=== PATIENT | male | born 2000 | race Caucasian/White ===

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

== ENCOUNTER 2019-08-13 22:36 | Emergency (ER) | payer SELFPAY ==
[2019-08-13 22:38] VITALS: BP 144/92; PULSE 124; RESP 24; TEMP 36.1; O2SAT 96
--- NOTE | 2019-08-13 22:46 | ED.GENADUL_ITS ---
Discharge Plan Disposition Patient Disposition: HOME Condition: Good Discharge Details Chief Complaint: RespSymp Clinical Impression: Asthma exacerbation Primary Care Provider: Isabella,Local ED Provider: Nelson Palacios Home Meds and New Rx's Prescriptions: New ipratropium-albuterol 0.5 mg-3 mg(2.5 mg base)/3 mL solution for nebulization 3 ml IH Q6H Qty: 90 RF: 0 prednisone 50 MG tablet 50 mg PO DAILY Qty: 5 RF: 0 doxycycline hyclate 100 mg tablet 100 mg PO BID Qty: 20 RF: 0 No Action fluticasone propion-salmeterol [Advair Diskus] 250-50 mcg/dose Blister With Device 1 inh Inhalation BID RF: 0 Combivent Respimat 20-100 mcg/actuation Mist 1 puff INHALATION Q6H PRN PRN (Reason: Shortness Of Breath) RF: 0 clonazepam 0.5 mg tablet,disintegrating 0.5 mg Translingual .once prn PRN (Reason: prn seizure aura or actual seizure lasting > 1 min) Qty: 5 RF: 0 lamotrigine [Lamictal] 25 mg Tablet 75 mg PO BID RF: 0 Discharge Instructions Instructions: Asthma (ED) Additional Instructions: At this time you have an asthma exacerbation. Your chest x-ray shows a very questionable small infiltrate which may be early pneumonia or may be nothing in particular. With no symptoms of fever chills or productive cough would recommend holding off on antibiotics unless you develop these symptoms. Please continue to use your nebulizer every 4 hours for the next 2 to 3 days. Please take the steroid prednisone as directed. If you notice any worsening of your symptoms, or any new symptoms such as vomiting, diarrhea, fever, chills, shortness of breath, chest pain, numbness, weakness, or fainting , please return immediately to the emergency department for reevaluation. Please follow up with your primary care provider as soon as possible for reassessment and reevaluation. As always, it was a pleasure participating in your medical care today. Medical Decision Making 19-year-old male with past medical history of seizures and asthma who presents today for an asthma exacerbation. Patient states that over the last 4 to 6 hours he is noted prompt increase shortness of breath, consistent with prior asthma exacerbations. He does smoke marijuana, but denies any tobacco or vaping. He has been using his inhalers and nebulizer at home which have improved his symptoms but not resolve them. He denies any fever or chills. He denies any significant chest pain or cough. Exam demonstrates diffuse wheezes throughout, mildly reduced breath sounds, but otherwise stable appearance. No hypoxemia at this time. But work of breathing is increased. Will give magnesium, nebs, and steroids, and reassess. 12:12 AM Patient is notably improved after breathing treatments, magnesium and steroids. He is feeling better and is requesting to go home. Oxygen saturation remains notably stable, he feels well. Repeat auscultation demonstrates normal lung sounds aside from minimal wheezes in the bases. Chest x-ray does show questionable patchy linear opacity in right upper lung keyes. With no fever, chills or productive cough I feel pneumonia is unlikely. However we will give the patient a prescription for doxycycline, recommends that if he does develop the symptoms that he can begin taking this. Give steroids for home use. We will send him home with a prescription for DuoNeb's to use with his home nebulizer. He does have a prescription coming in but he can use this if it does not come in in a timely manner. Additionally we will also send him home with 4 DuoNeb treatments as he has not at home currently. This is why there is a notably higher order level than was actually administered here. I have extensively reviewed the treatment plan and discharge instructions with the patient. I have addressed all patient concerns at this time. The patient was made aware of what symptoms to monitor for that would warrant a return to the emergency department. Discussed the plan with the patient, they demonstrate verbal understanding and agreement with our assessment and plan at this time. FINDINGS: Lungs: Patchy opacity in the right upper lobe may reflect a focus of linear atelectasis. Associated subtle right upper lobe infiltrate/pneumonia not excluded. Pleural space: Unremarkable. No pleural effusion. No pneumothorax. Heart/Mediastinum: Unremarkable. No cardiomegaly. Bones/joints: Unremarkable. IMPRESSION: Patchy linear opacity in the right upper lobe may reflect a focus of linear atelectasis. Associated subtle right upper lobe infiltrate/pneumonia not excluded. Thank you for allowing us to participate in the care of your patient. Dictated and Authenticated by: Juan A rAteaga MD 08/13/2019 11:16 PM Eastern Time ([place] & [place]) HPI General Date/Time Provider Initiated Documentation: 08/13/19 22:38 . HPI Narrative: 19-year-old male with a past medical history of asthma and seizures who presents today for evaluation of shortness of breath. The patient states that earlier this afternoon/early evening he became notably short of breath and had difficulty breathing. He was taking both his nebulizer solutions and his inhalers but this only slightly improved his symptoms but did not resolve it. He does admit to marijuana use, but denies any vaping or tobacco use. He denies any exposure to smoke, any cough fever or chills otherwise. He denies any significant chest pain. He denies any other complaints at this time. He denies being intubated before for his asthma. He denies any recent NSAID use. He denies any recent trauma. Related Data Home Medications Medication Instructions Recorded Confirmed Combivent Respimat 1 puff INHALATION Q6H PRN PRN 10/18/18 08/13/19 clonazepam 0.5 mg TRANSLINGUAL .once prn PRN 10/18/18 08/13/19 #5 tab fluticasone propion-salmeterol 1 inh INHALATION BID 10/18/18 08/13/19 [Advair Diskus] lamotrigine [Lamictal] 75 mg PO BID 08/13/19 08/13/19 doxycycline hyclate 100 mg PO BID #20 tab 08/14/19 ipratropium-albuterol 3 ml IH Q6H #90 ml 08/14/19 prednisone 50 mg PO DAILY #5 tab 08/14/19 Previous Rx's Medication Instructions Recorded clonazepam 0.5 mg TRANSLINGUAL .once prn PRN 10/18/18 #5 tab doxycycline hyclate 100 mg PO BID #20 tab 08/14/19 ipratropium-albuterol 3 ml IH Q6H #90 ml 08/14/19 prednisone 50 mg PO DAILY #5 tab 08/14/19 Allergies Allergy/AdvReac Type Severity Reaction Status Date / Time No Known Allergies Allergy Unverified 08/13/19 22:57 General Stated Complaint: RespSymp [place]: 3 Review of Systems All systems reviewed & are unremarkable except as noted in HPI and below PFSH Social History Smoking/Tobacco Use Status: Current every day Tobacco Type: cigarettes Alcohol Intake: never Drug use: Socially Substance use type: marijuana Do you feel safe at home: Yes Do you feel safe in your relationship?: Yes Exam Narrative Exam Narrative: 1.Const: Well-nourished, Well-developed, appearing stated age 2.Eyes: PERRL, no conjunctival injection, and symmetrical lids. 3.ENT: Atraumatic external nose and ears. Moist MM. Neck: Symmetric, trachea midline, No thyromegaly. 4.CVS: +S1/S2, No murmurs or gallops. Peripheral pulses 2+ and equal in all extremities. Brisk capillary refill in all extremities. 5.RESP: Unlabored respiratory effort, no signs of acute airway compromise though. Diffuse wheezes throughout mildly reduced breath sounds throughout. No rales or rhonchi. 6.GI: Soft, Nontender/Nondistended, No hepatosplenomegaly. No guarding or rebound. 7.MSK: Normocephalic/Atraumatic, Extremities w/o deformity or ttp No cyanosis or clubbing, Normal movement of all extremities 8.Skin: Warm, Dry. No rashes or lesions. 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 Sensation grossly intact, no focal neurologic deficits. 10.Psych: (AAO) x3. Appropriate mood and affect Course Vital Signs Vital signs: Vital Signs Temperature 36.1 C L 08/13/19 22:38 Pulse 124 H 08/13/19 22:38 Respiratory Rate 24 08/13/19 22:38 Blood Pressure 144/92 H 08/13/19 22:38 Pulse Oximetry 96 08/13/19 22:38 Temperature 36.1 C L 08/13/19 22:38 Temperature Source Skin 08/13/19 22:38 Pulse 124 H 08/13/19 22:38 Respiratory Rate 24 08/13/19 22:38 Respiratory Effort Non-Labored 08/13/19 22:41 Respiratory Depth Normal 08/13/19 22:41 Blood Pressure 144/92 H 08/13/19 22:38 Blood Pressure Position Sitting 08/13/19 22:38 Pulse Oximetry 96 08/13/19 22:38 Oxygen Delivery Method Room Air 08/13/19 22:38 Oxygen Flow Rate 0 08/13/19 22:38 Pain Level 0 08/13/19 22:38
[2019-08-13] MEDS: methylPREDNISolone SUCC 125 MG VIAL IVP (22:48)
[2019-08-13 22:49] VITALS: PULSE 114; RESP 24; RESP 4; RESP 8; O2SAT 96
[2019-08-13] MEDS: Albuterol/Ipratropium 3 ML UPD VIAL 9 ML UPD (22:49)
[2019-08-13] MEDS: MAGNESIUM SULFATE 2 GM/50 ML BAG IVPB (22:50)
[2019-08-13] MEDS: Normal Saline 500 ML IV (23:00)
[2019-08-13 23:08] VITALS: PULSE 124; RESP 21; RESP 4; O2SAT 96
--- NOTE | 2019-08-13 23:11 | DI.RAD_ITS ---
EXAM: XR PORTABLE CHEST AP CLINICAL HISTORY: asthma, SOB, eval for infiltrate COMPARISON: XR CHEST 2V PA LATERAL from 11/24/2018 FINDINGS: Examination is compared with previous examination of 11/24/2018. There is new predominantly linear a blanca of increased radiodensity in the right upper lung field. Question minimally increased left supra hilar markings noted as well. No pleural effusion. Cardiac size within normal limits. IMPRESSION: Findings suggesting acute atelectasis and/or consolidation, right upper lung field. Appropriate foll ow-up studies requested.
--- NOTE | 2019-08-13 23:16 | DI.VRAD_ITS ---
PROCEDURE INFORMATION: Exam: XR Chest, 1 View Exam date and time: 08/13/2019 11:11 PM Age: 19 years old Clinical indication: Shortness of breath; Patient HX: Asthma, SOB, eval for infiltrate TECHNIQUE: Imaging protocol: XR of the chest Views: 1 view. COMPARISON: CR XR CHEST 2V PA LATERAL 11/24/2018 10:21 AM FINDINGS: Lungs: Patchy opacity in the right upper lobe may reflect a focus of linear atelectasis. Associated subtle right upper lobe infiltrate/pneumonia not excluded. Pleural space: Unremarkable. No pleural effusion. No pneumothorax. Heart/Mediastinum: Unremarkable. No cardiomegaly. Bones/joints: Unremarkable. IMPRESSION: Patchy linear opacity in the right upper lobe may reflect a focus of linear atelectasis. Associated subtle right upper lobe infiltrate/pneumonia not excluded. Dictated and Authenticated by: Juan A Arteaga MD. Ordering:MERCEDES Damon MD
[2019-08-13 23:26] VITALS: BP 103/47; PULSE 126; RESP 19; O2SAT 94
[2019-08-13 23:34] VITALS: PULSE 112; RESP 18; RESP 4; O2SAT 96
[2019-08-13] MEDS: Albuterol/Ipratropium 3 ML UPD VIAL (23:34)
[2019-08-14 00:08] VITALS: RESP 4
[2019-08-14] MEDS: Albuterol/Ipratropium 3 ML UPD VIAL 15 ML UPD (00:08)
[2019-08-14 00:11] VITALS: BP 122/80; PULSE 124; RESP 16; O2SAT 100
--- NOTE | 2019-08-14 14:33 | ED.FU.B_ITS ---
Received call from patient's mother, 08/14/2019. Patient is at pharmacy trying to fill prescription for prednisone and DuoNeb. Patient does not have insurance, cannot afford prednisone but cannot afford DuoNeb, requesting DuoNeb prescription be changed to albuterol nebulizer solution. I called [facility] pharmacy as requested, DuoNeb changed to albuterol every 4 hours as needed.
== END 2019-08-14 00:25 | disposition home or self-care (01) ==
LOC: ER 08-14 00:29
PROVIDERS: Emergency Provider Student in an Organized Health Care Education/Training Program
DX: J45.901 Unspecified asthma with (acute) exacerbation (principal); F12.10 Cannabis abuse, uncomplicated; R91.8 Other nonspecific abnormal finding of lung field
CPT/HCPCS: 94640; 96361; 96374; 96375; 99285; 71045; J2930; J7620

== ENCOUNTER 2021-04-09 22:26 | Emergency (ER) | payer SELFPAY ==
[2021-04-09 22:44] VITALS: BP 136/74; PULSE 106; RESP 20; TEMP 37.8; O2SAT 97
--- NOTE | 2021-04-09 22:45 | RT.EKG_ITS ---
APPROVED REPORT Exam: Resting ECG Reason for Exam: seizures with ICD fire Patient Location: E HR:100 bpm ECG Measurements Heart Rate 100 AXIS AL 156 P 16 QRSd 72 QRS -5 QT 327 T 18 QTc 422 Conclusion Sinus tachycardia...rate> 99. Sinus. No STEMI. I have reviewed and interpreted ECG and agree with software generated interpretation.
--- NOTE | 2021-04-09 22:47 | ED.GENADUL_ITS ---
Discharge Plan Disposition Patient Disposition: HOME Condition: Improving Discharge Details Clinical Impression: Seizure disorder, Breakthrough seizure Primary Care Provider: [facility] Provider: Dany Perez Home Meds and New Rx's Prescriptions: Continued montelukast [Singulair] 10 mg Tablet 10 mg PO DAILY RF: 0 Nayzilam 5 mg/spray (0.1 mL) [place],Non-Aerosol 5 mg INTRANASAL ONCE PRNRF: 0 clonazepam 0.5 mg tablet,disintegrating 1 mg Translingual BID RF: 0 fluticasone propion-salmeterol [Advair Diskus] 250-50 mcg/dose Blister With Device 1 inh Inhalation BID RF: 0 Combivent Respimat 20-100 mcg/actuation Mist 1 puff INHALATION Q6H PRN PRN (Reason: Shortness Of Breath) RF: 0 lamotrigine [Lamictal] 25 mg Tablet 75 mg PO BID RF: 0 ipratropium-albuterol 0.5 mg-3 mg(2.5 mg base)/3 mL solution for nebulization 3 ml IH Q6H Qty: 90 RF: 0 prednisone 50 MG tablet 50 mg PO DAILY Qty: 5 RF: 0 doxycycline hyclate 100 mg tablet 100 mg PO BID Qty: 20 RF: 0 Discharge Instructions Instructions: Recurrent Seizures in Adults (ED) Additional Instructions: Continue routine medications. We will ask our care management team to arrange a follow-up for you with our local neurologist. Home to rest this evening. Return for any acute concerns. Discharge Data Discharge Date/Time-TO BE ENTERED AT DEPARTURE: 04/10/21 01:31 Medical Decision Making <JOSE CARLOS Vance - Last Filed: 04/10/21 02:14> Patient is a pleasant 20-year-old male with known history of epilepsy, presenting today via EMS for breakthrough seizures. Patient reports that he had 2-day lapse in receiving his twice daily clonazepam. States that he subsequently suffered 3 breakthrough seizures today. Last seizure was witnessed by mom to administer intranasal midazolam. At the time EMS initially arrived, patient was postictal. A nasal trumpet was inserted. At the time he arrived in the ER, patient is alert and awake. He states that he typically does not a postictal period. He reports that he has a mild headache which is actually less than his typical. She denies pain elsewhere. Patient does have implanted ICD secondary to arrhythmias associated with his epilepsy. Per mom, this fired 3 times today. He denies any chest pain. He denies feeling short of breath. Patient reports that the break in the medication was secondary to delivery method. Patient is currently residing [facility] but neurology team is in [place] where mom currently lives. Typically mom male the medications to him but sadly there was a delay. Rather, she drove this up tonight. On exam, patient appears nontoxic. I have seen him in the postictal state historically and he does appear quite similar. He appears nontoxic. He has a normal neurological exam. Trauma is notable for the tongue but otherwise no objective evidence of trauma. Vital signs are stable. Nasal trumpet was removed by patient. He is no longer requiring oxygen. Lungs are clear, abdomen benign. The patient had 3 breakthrough seizures today, plan to obtain baseline labs. Has had multiple imaging of his head historically, as he has returned to baseline reports that this feels like his typical seizure, particularly as we cannot identify why he likely had a breakthrough, I do not feel that repeat CT is warranted at this time. However, as he did suffer 3 seizures I do feel that evaluation for potential electrolyte abnormality, rhabdomyolysis, elevation of troponin would be appropriate. Discussed this plan with the patient and his mom who are in agreement. Spoke with mom in person and on the phone. She may be reached at [phone]. Frequent updates provided. Labs reviewed. No leukocytosis. Stable H&H. CMP significant for elevation of the creatinine to 1.5. He has been elevated as high as 1.4 historically. He did appear dry on exam. Is likely associated with his seizure activity. CK within normal limits. Troponin within normal limits. Thyroid within normal espinal its. No alcohol on board. Patient reports that he has marijuana recently but this is not unusual for him.. UA pending. At the end of my shift, care transition to Dr. Perez with UA disposition delio horn. Patient is pending 2 L of fluids. Discussed this plan with the patient. He continues to be neurologically intact, feeling well. Sleeping intermittently. Drinking water and talking on the phone with mom. Break through in his medications was d/t his neurologist prescribing controlled substances in [place]. I believe he would be safer if he had a neurologist closer, will refer locally. Patient does not have a drivers license secondary to his seizure disorder. I have asked care management to reach out, if he has RCT to help with transportation to pharmacy, he could milk pickup driver his medicaitons himself and hopefully not have lapses in his antiepileptic medications. <Dany Perez MD - Last Filed: 04/10/21 01:04> Patient improved. He is ambulatory, in no distress. He has been placed back on his medications. Urinalysis without evidence of infection. No glucose or ketones. Stable and appropriate for discharge to home. Consistent with breakthrough seizure and known seizure disorder. Ms Nagel has arranged for local neurology follow-up. HPI <JOSE CARLOS Vance - Last Filed: 04/10/21 02:14> General Mode of arrival: EMS . Date/Time Provider Initiated Documentation: 04/09/21 22:32 . Limitations to Documentation: no limitations . Information obtained by: patient, family (mom), EMS, RN notes reviewed and old records reviewed . History of Present Illness 20 year old M presents to the emergency department with the chief complaint of multiple seizures, described as moderate and similar to prior episodes, Quality is described as aching, and is localized to the head (reports mild REED, the same as he typically has in post ictal period). Patient reports no radiation. Patient started experie ncing this hour(s) (has had 3 breakthrough seizures today) and it has been intermittent. No relieving factors improve symptom(s), Other factors that worsen symptoms (missed 2 days worth of medications) . Patient notes no other symptoms.; denies chest pain, cough, fever/chills, loss of appetite, nausea/vomiting, rash and shortness of breath. Patient did receive the following treatments prior to arrival, other (midazolam ) Related Data Home Medications Medication Instructions Recorded Confirmed Combivent Respimat 1 puff INHALATION Q6H PRN PRN 10/18/18 04/09/21 fluticasone propion-salmeterol 1 inh INHALATION BID 10/18/18 04/09/21 [Advair Diskus] lamotrigine [Lamictal] 75 mg PO BID 08/13/19 04/09/21 doxycycline hyclate 100 mg PO BID #20 tab 08/14/19 ipratropium-albuterol 3 ml IH Q6H #90 ml 08/14/19 04/09/21 prednisone 50 mg PO DAILY #5 tab 08/14/19 Nayzilam 5 mg INTRANASAL ONCE PRN 04/09/21 04/09/21 clonazepam 1 mg TRANSLINGUAL BID 04/09/21 04/09/21 montelukast [Singulair] 10 mg PO DAILY 04/09/21 04/09/21 Previous Rx's Medication Instructions Recorded doxycycline hyclate 100 mg PO BID #20 tab 08/14/19 ipratropium-albuterol 3 ml IH Q6H #90 ml 08/14/19 prednisone 50 mg PO DAILY #5 tab 08/14/19 Allergies Allergy/AdvReac Type Severity Reaction Status Date / Time No Known Allergies Allergy Unverified 04/09/21 23:36 General [place]: 3 Review of Systems <JOSE CARLOS Vance - Last Filed: 04/10/21 02:14> Constitutional Constitutional: Reports as per HPI, Denies chills, Reports fatigue, Denies fever(s) and Reports headache(s) Eyes Eyes: Reports as per HPI and Denies change in vision ENT Ears, Nose, Mouth, and Throat: Denies vertigo, Reports headache(s) and Denies neck pain Cardiovascular Cardiovascular: Reports as per HPI, Denies chest pain, Denies lightheadedness, Denies radiating jaw, neck or arm pain, Denies dyspnea and Denies dyspnea on exertion Respiratory Respiratory: Reports as per HPI, Denies chest congestion, Denies cough, Denies dyspnea and Denies dyspnea on exertion Gastrointestinal Gastrointestinal: Reports as per HPI, Denies abdominal pain, Denies change in bowel habits, Denies nausea and Denies vomiting Musculoskeletal Musculoskeletal: Reports as per HPI, Denies back pain, Denies myalgias, Denies muscle cramps, Denies neck pain and Denies numbness Integumentary/Breasts Skin/Breast: Reports as per HPI and Denies rash Neurologic Neurologic: Reports as per HPI, Denies abnormal movements, Denies abnormal speech, Denies behavioral changes, Denies confusion, Denies vertigo, Reports headache(s), Denies localized weakness, Denies numbness, Reports convulsions and Denies sensory deficit Psychiatric Psychiatric: Denies behavioral changes and Denies confusion Endocrine Endocrine: Reports fatigue PFSH <JOSE CARLOS Vance - Last Filed: 04/10/21 02:14> Medical History (Updated 04/10/21 @ 01:03 by Dany Perez MD) Asthma Epilepsy Surgical History History of nasal surgery History of tonsillectomy Social History Smoking/Tobacco Use Status: Never Smoking risk assessment performed?: Yes Alcohol Intake: current Drug use: Socially Substance use type: marijuana Do you feel safe at home: Yes Do you feel safe in your relationship?: Yes Exam <JOSE CARLOS Vance - Last Filed: 04/10/21 02:14> Const General: cooperative, healthy appearing, comfortable, no acute distress, well developed and well groomed Nutritional Appearance: average body habitus and well nourished Orientation: alert, awake and oriented x3 HENMT Head: normal to inspection, no palpable skull fracture, normocephalic and atraumatic Ears: hearing grossly normal bilaterally, external ears normal and TM's normal bilaterally General nose exam: external nose normal Mouth: oral mucosae normal, abnormal tongue (Bite izquierdo on both sides, no bleeding currently), mucous membranes dry (Appears dry), lip abnormal (Dry) and no muffled voice Throat: posterior oropharynx normal Eyes General: appearance normal, both eyes and all related structures Alignment and Position: alignment normal Periorbital: periorbital findings normal Eyelids: eyelids normal Sclera: sclerae normal Cornea: corneas normal Pupils: PERRL EOM: EOM intact bilaterally Neck Neck: normal visual inspection, full ROM, no lymphadenopathy and no meningeal signs Resp Effort & Inspection: normal respiratory effort, able to speak in complete sentences and no respiratory distress Auscultation: clear to auscultation bilaterally, no rales, no rhonchi and no wheezes Cardio Rate: regular rate Rhythm: regular rhythm Heart Sounds: S1 normal and S2 normal GI Inspection: normal to inspection and non-distended Palpation: soft, no hepatosplenomegaly, not firm, no guarding, not rigid and nontender Percussion: normal to percussion Auscultation: normal bowel sounds Back/Spine/Pelvis Cervical Spine: normal cervical lordosis, cervical ROM normal, No cervical spinal tenderness and No step off deformity Skin General skin exam: no rashes or lesions noted Neuro General: patient alert, patient awake and patient oriented x3 Cranial Nerves: CN's II-XI intact bilaterally Cognition: normal cognition Speech: speech normal Gait: normal gait Motor: muscle tone normal throughout, strength 5/5 throughout, no pronator drift, no movement abnormalities noted and no fasciculations Sensory Exam: no sensory deficits noted Coordination: [id number] test normal and [id number] test normal Extrem General: normal to inspection, capillary refill normal, no pedal edema and no calf tenderness Psych Appearance: grossly normal and well kempt Mental Status: mental status grossly normal Speech and Movement: speech and movement normal Sign Out <JOSE CARLOS Vance - Last Filed: 04/10/21 02:14> Sign Out Data: Sign Out Comment: Care transitioned to Dr. Perez with UA, reassessment and disposition pending. Last updated by Genie Nagel PA at 04/10/21 00:01
[2021-04-09 23:00] LABS: Abs Immature Grans 0.05 10^3/uL (0.0-0.06); Absolute Basophil Count 0.04 10^3/uL (0.0-0.2); Absolute Eosinophil Count 0.59 10^3/uL (0.0-0.7); Absolute Lymphocyte Count 1.81 10^3/uL (1.2-3.4); Absolute Monocyte Count 0.74 10^3/uL (0.1-0.8); Basophils % 0.4; Eosinophils % 6.1; HCT 43.9 % (40.0-50.0); HGB 14.8 g/dL (13.5-17.5); Immature Grans % 0.5; Lymphocytes % 18.8; MCH 31.5 pg (27.0-33.0); MCHC 33.7 % (32.0-36.0); MCV 93.4 fL (80-95); MPV 9.3 fL (8.0-11.0); Monocytes % 7.7; Neutrophils % 66.5; Nucleated RBC 0 %; Platelet Count 301 10^3/uL (130-400); RDW 11.9 % (11.8-14.1); RDW-SD 41.1 fL; WBC 9.63 10^3/uL (4.4-10.8)
[2021-04-09] MEDS: lamoTRIgine 25 MG TAB PO (23:04)
[2021-04-09] MEDS: Acetaminophen 325 MG TAB 650 MG PO (23:06)
[2021-04-09] MEDS: Normal Saline 1,000 ML 1000 ML IV (23:11)
[2021-04-09 23:25] LABS: ALT 26 U/L (16-63); AST 14 U/L (15-37); Albumin 4.5 g/dL (3.4-5.0); Alkaline Phosphatase 95 U/L (46-116); Anion Gap 13.2 mmol/L (3-11); BUN 10 mg/dL (7-18); Bilirubin, Total 0.8 mg/dL (0.2-1.0); CO2 25.8 mmol/L (21.0-32.0); CREATININE 1.5 mg/dL (0.70-1.30); Calcium 9.2 mg/dL (8.5-10.1); Chloride 106 mmol/L (98-107); ETHANOL BLOOD < 3.0 mg/dL (<3); Estimated GFR 59.08 (mL/min/1.73m2); Glucose 55 mg/dL (74-106); Potassium 4.3 mmol/L (3.5-5.1); Sodium 145 mmol/L (136-145); Total Protein 7.3 g/dL (6.4-8.2)
[2021-04-09 23:29] LABS: Creatine Kinase 259 U/L (39-308); Magnesium 2.3 mg/dL (1.8-2.4)
[2021-04-09 23:30] LABS: Troponin I < 0.05 ng/mL (<0.06)
[2021-04-10 00:04] VITALS: BP 126/60; PULSE 86; RESP 15; TEMP 36; O2SAT 98
--- NOTE | 2021-04-10 00:09 | NUR.NOTE ---
Nursing Note: Patient resting in bed at this time in relaxed position. Eyes closed and respirations even and nonlabored. Monitors in place and IV infusing per order without difficulty.
[2021-04-10 00:54] LABS: Bilirubin Negative (Negative); Blood Trace-intact (Negative); Clarity Clear (Clear); Glucose Negative (Negative); Ketones Negative (Negative); Leukocyte Esterase Negative (Negative); Nitrite Negative (Negative); Specific Gravity 1.025 (1.005-1.025); Urobilinogen 0.2 EU/dL (Up TO 0.2)
[2021-04-10 00:57] LABS: Bacteria Rare HPF (Negative); Casts Negative LPF (Negative); Crystals Negative HPF (Negative); Epithelial Cells Rare HPF (Negative); Mucus Negative (Negative); WBC 0-2 HPF (0-5)
[2021-04-10 00:58] LABS: C & S Indicated? No
[2021-04-10 01:05] LABS: *AMPHETAMINES SCREEN URINE Negative (Negative); *BARBITURATES SCREEN URINE Negative (Negative); *BENZODIAZEPINES SCREEN URINE Positive (Negative); Cannabinoids THC Positive (Negative); Cocaine Screen,Urine Negative (Negative); METHADONE URINE SCREEN Negative (Negative); OPIATES URINE SCREEN Negative (Negative)
[2021-04-10 01:06] LABS: Tricyclic Antidepressants Negative (Negative)
[2021-04-10 01:28] VITALS: BP 109/51; PULSE 93; RESP 20; TEMP 36.8; O2SAT 98
--- NOTE | 2021-04-10 01:44 | NUR.NOTE ---
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 ED provider would like him to be seen by local neurology and see if he can get hooked up with [facility] for rides to a pharmacy to get his medications as he doesn't drive. Referral faxed to Dr Harvey's office.Nursing Note:
== END 2021-04-10 01:31 | disposition home or self-care (01) ==
PROVIDERS: Physician Assistant; Emergency Provider Emergency Medicine
DX: G40.909 Epilepsy, unspecified, not intractable, without status epilepticus (principal)
CPT/HCPCS: 36415; 80053; 80307; 82550; 93005; 96360; 99284; 80320; 81003; 81015; 83735; 84443; 84484; 85025; 93010

== ENCOUNTER 2022-11-29 21:10 | Emergency (ER) | payer OTHER, SELFPAY ==
[2022-11-29] VITALS (9 sets, daily range): BP systolic 101; BP diastolic 58; PULSE 100–128; RESP 4–50; O2SAT 98–100
--- NOTE | 2022-11-29 21:30 | DI.RAD_ITS ---
Exam(s) XR PORTABLE CHEST AP EXAM: XR PORTABLE CHEST AP CLINICAL HISTORY: intubation tube placement. TECHNIQUE: 2D digital imaging was performed. COMPARISON: Chest x-ray 08/13/2019 FINDINGS: Single AP portable view. Endotracheal tube is in satisfactory position. Heart size is normal. Bipolar left subclavian pacemaker noted. There is significant infiltrate in the left upper lobe suprahilar region. Right lung density which is either in the right upper lobe or superior segment right lower lobe is un changed. No obvious pleural effusions. IMPRESSION: New left upper lobe infiltrate.Unchanged right lung finding. ET tube is in satisfactory position, approximately 3 cm above the grecia. DATA REPOSITORY: RADIATION DOSE DELIVERED:
[2022-11-29 21:55] LABS: Abs Immature Grans 0.26 10^3/uL (0.0-0.06); HCT 47.5 % (40.0-50.0); HGB 15.3 g/dL (13.5-17.5); MCH 31.9 pg (27.0-33.0); MCHC 32.2 % (32.0-36.0); MCV 99 fL (80-95); MPV 9.7 fL (8.0-11.0); Platelet Count 379 10^3/uL (130-400); RDW-SD 43.9 fL; WBC 16.71 10^3/uL (4.4-10.8)
--- NOTE | 2022-11-29 21:57 | W.ED.GENAD ---
Discharge Plan Disposition Patient Disposition: Transfer-Acute Inpatient Care Specific Acute Inpt Facility: [facility] Condition: Critical Discharge Details Clinical Impression: Acute respiratory failure, Status epilepticus, Pneumonia, History of asthma, History of pacemaker Primary Care Provider: Isabella,Local ED Provider: Karol Peters Home Meds and New Rx's Prescriptions: No Action montelukast [Singulair] 10 mg Tablet 10 mg PO DAILY Nayzilam 5 mg/spray (0.1 mL) Celina,Non-Aerosol 5 mg INTRANASAL ONCE PRN clonazepam 0.5 mg tablet,disintegrating 1 mg Translingual BID Rx Instructions: 0.5 mg in am and 1 mg at hs fluticasone propion-salmeterol [Advair Diskus] 250-50 mcg/dose Blister With Device 1 inh Inhalation BID Combivent Respimat 20-100 mcg/actuation Mist 1 puff INHALATION Q6H PRN PRN (Reason: Shortness Of Breath) lamotrigine [Lamictal] 25 mg Tablet 75 mg PO BID ipratropium-albuterol 0.5 mg-3 mg(2.5 mg base)/3 mL solution for nebulization 3 ml IH Q6H Qty: 90 0RF prednisone 50 MG tablet 50 mg PO DAILY Qty: 5 0RF doxycycline hyclate 100 mg tablet 100 mg PO BID Qty: 20 0RF Discharge Data Discharge Date/Time-TO BE ENTERED AT DEPARTURE: 11/30/22 01:15 Medical Decision Making 2129 --22-year-old male presents per EMS after called to scene for reported seizure and noted patient to be having gurgling respiration with oxygen saturations 80% with no observable seizure activity but no change in mental status with a total of 25 mg midazolam per EMS. Patient had an i-gel placed in the field. On arrival to the ED, patient is noted to have generalized shaking that does not appear consistent with seizure activity and gurgling respirations. Oxygen saturation 100% with bagging with i-gel. Patient set up for intubation with preoxygenation in which ET tube was noted to be passing through the cords on first attempt with equal breath sounds but unable to bag due to stiffness. The cuff had been fully inflated and oxygen saturations noted to be downtrending to as low as 50s. The 7.5 ET tube was removed and patient was bagged until O2 saturations increased to near 80%. A second 7.5 ET tube was then placed again noted to be passing through the cords with equal breath sounds with easier bagging noted and again patient noted to have oxygen desaturations down into the 50%. Upon inspection of the tube with tongue blade it appears to be through the vocal cords. The cuff was then deflatted a bit and able to bag easily and oxygen saturations improved to 90s and then 100%. Portable chest x-ray noted appropriate placement of ET tube above the grecia. Review of records notes patient has a history of asthma, seizure disorder and reportedly a history of a pacemaker. 2199 --patient noted to have wheezing throughout and Xopenex and Atrovent ordered due to tachycardia. 125 Solu-Medrol ordered. 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 She states he was diagnosed with this at [facility]. She reports he has been taking his seizure medication as prescribed but he is staying at [facility] for school and she is in [place]. She states she was told by his friends that he went bowling and was about to eat a hamburger when he began seizing. She states he smokes THC but denies any other drug use. She reports that he is usually compliant with his seizure medications. 2244 --called to bedside as patient is seizing. 2 mg Ativan IV administered. Patient with persistent seizure activity. An additional 2 mg Ativan IV given. Seizure activity ceased. Labs and imaging reviewed. Possible left upper lobe pneumonia. No pneumothorax. Patient has been unable to go to CT imaging as we have been attempting to achieve proper sedation and then development of seizure activity. We will start IV antibiotics. [facility] transfer initiated. 2299 -- pt seizing again. Another 2mg Ativan IV ordered. We will also order 1000 mg of fosphenytoin and 2 g of Keppra IV. 2314 -- discussed with [facility] neuro ICU attending Dr. Medina -- accepts pt for transfer -- agrees with plan for fosphenytoin and Keppra. Recommends an additional 2 g of Keppra IV. If patient continues with seizure activity, recommends phenobarbital at 20 mg/kg. Can also increase Versed drip if patient remains hemodynamically stable. Able to obtain a rectal temp at 98.9. Patient had been noticed to open his eyes at one point during jerking activity. 2345 -- [facility] will transfer patient. Mother called and notified of transport to [facility]. Of note, patient has not yet gone to radiology for CT imaging. We will attempt to at least obtain head and neck CT and if develop seizure activity will hold on chest and abdomen imaging so as not to delay transport [facility]. 0040 --unable to obtain CT imaging as patient had seizures in radiology for which he was given additional IV Ativan. [facility] along with staff to radiology and decision made to transport and CT imaging not performed so as not to delay transfer. 0200 -patient's neurologist at [facility] Dr. Morin called the ED as she was informed by patient's mother that he was here. She had inquired if she could be of assistance and she was informed that patient was transferred to [facility]. She endorses that patient has had 2 episodes in which he had an asthma attack leading to his seizure in which he reportedly lost a pulse and required CPR. She states this was the reason that patient was referred to cardiology for a pacemaker. Medical Records Medical records reviewed: Yes I reviewed the patient's medical records. Imaging Data Radiologic Study: Radiologist's impression: XR Chest Exam date and time: 11/29/2022 9:47 PM Age: 22 years old Clinical indication: Device placement; Other: Post intubation; Prior surgery; Surgery date: 6+ months; Surgery type: Pacemaker; Patient HX: Intubation tube placement; Additional info: Ng tube was repositioned between images TECHNIQUE: Imaging protocol: Radiologic exam of the chest. Views: 1 view. COMPARISON: CR XR PORTABLE CHEST AP 08/13/2019 11:06 PM FINDINGS: Tubes, catheters and devices: Endotracheal tube tip is 3.5 cm above the grecia. A nasogastric tube was placed for the 2nd image with its tip projecting in the gastric fundus distribution. Lungs: Normal pulmonary expansion. Pulmonary vasculature grossly normal. Consolidative airspace disease in the medial left upper lobe concerning for pneumonia or atelectasis. Mild bandlike chronic atelectasis or scarring in the central right upper lobe is unchanged from 2020. Pleural spaces: No pleural effusion. No pneumothorax. Heart/Mediastinum: Heart size normal. No tracheal/mediastinal shift. Vasculature: Cardiac pacemaker via left subclavian approach without gross hardware complication. Bones/joints: No acute osseous abnormalities are identified. IMPRESSION: 1. ? Endotracheal tube tip is 3.5 cm above the grecia. 2. ? Nasogastric tube tip projects in the gastric fundus. 3. ? Cardiac pacemaker without gross hardware complication. No pneumothorax. 4. ? Left upper lobe airspace disease concerning for pneumonia. 5. ? Chronic scarring or atelectasis in the right upper lobe is unchanged from 2020. Lab Data Lab results reviewed: Yes I reviewed the patient's lab results. Labs: 11/29/22 23:30 Blood Blood Culture - Pending 11/29/22 23:30 Blood Blood Culture - Pending Laboratory Tests Range/Units 11/29/22 11/29/22 11/29/22 21:30 21:30 21:30 WBC (4.4-10.8) 10^3/uL 16.71 H RBC (4.36-5.78) 10^6/uL 4.80 Hgb (13.5-17.5) g/dL 15.3 Hct (40.0-50.0) % 47.5 MCV (80-95) fL 99 H MCH (27.0-33.0) pg 31.9 MCHC (32.0-36.0) % 32.2 RDW (11.8-14.1) % 12.0 Plt Count (130-400) 10^3/uL 379 MPV (8.0-11.0) fL 9.7 Immature Gran % 0.0 Neutrophils % 50.0 Lymphocytes % 37.0 Monocytes % 7.0 Eosinophils % 6.0 Basophils % 0.0 Nucleated RBC % (0.0-0.3) % 0.0 Absolute Neutrophils (1.2-6.7) 10^3/uL 8.36 H Absolute Lymphocytes (1.2-3.4) 10^3/uL 6.18 H Absolute Monocytes (0.1-0.8) 10^3/uL 1.17 H Absolute Eosinophils (0.0-0.7) 10^3/uL 1.00 H Absolute Basophils (0.0-0.2) 10^3/uL 0.00 RBC Morphology Normal ABG Sample Site ABG pH (7.35-7.45) ABG pCO2 (35-45) mmHg ABG pO2 (80-105) mmHg ABG HCO3 (22-26) mmol/L ABG Total CO2 (23-27) mmol/L ABG O2 Saturation (95-98) % ABG Base Excess (-2-3) mmol/L VBG Lactate FiO2 % Sodium (136-145) mmol/L 138 Potassium (3.5-5.1) mmol/L 5.0 Chloride (98-107) mmol/L 102 Carbon Dioxide (21.0-32.0) mmol/L 23.5 Anion Gap (3-11) mmol/L 12.5 H BUN (7-18) mg/dL 12 Creatinine (0.70-1.30) mg/dL 1.5 H Est GFR (CKD-EPI 2020) (mL/min/1.73m2) 66.67 Glucose (74-106) mg/dL 205 H Calcium (8.5-10.1) mg/dL 8.8 Magnesium (1.8-2.4) mg/dL 1.7 L Total Bilirubin (0.2-1.0) mg/dL 0.3 AST (15-37) U/L 19 ALT (16-63) U/L 28 Alkaline Phosphatase (46-116) U/L 91 Troponin I (<or=60) ng/L < 50 Total Protein (6.4-8.2) g/dL 7.2 Albumin (3.4-5.0) g/dL 3.9 Procalcitonin ng/mL Urine Color (Yellow) Urine Clarity (Clear) Urine pH (5-8) Ur Specific [place] (1.005-1.025) Urine Protein (Negative) mg/dL Urine Ketones (Negative) mg/dL Urine Blood (Negative) Urine Nitrite (Negative) Urine Bilirubin (Negative) Urine Urobilinogen (Up to 0.2) mg/dL Ur Leukocyte Esterase (Negative) Urine RBC (0-2) HPF Urine WBC (0-5) HPF Ur Epithelial Cells (Negative) HPF Urine Crystals (Negative) HPF Urine Bacteria (Negative) HPF Urine Casts (Negative) LPF Urine Mucus (Negative) Urine Other (Negative) Ur Culture Indicated? Urine Glucose (Negative) mg/dL Salicylates (<2.8) mg/dL < 2.8 Urine Opiates Screen (Negative) Urine Methadone Screen (Negative) Acetaminophen (10-30) ug/mL 2 Ur Barbiturates Screen (Negative) Ur Tricyclics Screen (Negative) Ur Amphetamines Screen (Negative) U Benzodiazepines Scrn (Negative) Urine Cocaine Screen (Negative) Ur THC Screen (Negative) Range/Units 11/29/22 11/29/22 11/29/22 21:30 22:00 22:00 WBC (4.4-10.8) 10^3/uL RBC (4.36-5.78) 10^6/uL Hgb (13.5-17.5) g/dL Hct (40.0-50.0) % MCV (80-95) fL MCH (27.0-33.0) pg MCHC (32.0-36.0) % RDW (11.8-14.1) % Plt Count (130-400) 10^3/uL MPV (8.0-11.0) fL Immature Gran % Neutrophils % Lymphocytes % Monocytes % Eosinophils % Basophils % Nucleated RBC % (0.0-0.3) % Absolute Neutrophils (1.2-6.7) 10^3/uL Absolute Lymphocytes (1.2-3.4) 10^3/uL Absolute Monocytes (0.1-0.8) 10^3/uL Absolute Eosinophils (0.0-0.7) 10^3/uL Absolute Basophils (0.0-0.2) 10^3/uL RBC Morphology ABG Sample Site ABG pH (7.35-7.45) ABG pCO2 (35-45) mmHg ABG pO2 (80-105) mmHg ABG HCO3 (22-26) mmol/L ABG Total CO2 (23-27) mmol/L ABG O2 Saturation (95-98) % ABG Base Excess (-2-3) mmol/L VBG Lactate Cancelled FiO2 % Sodium (136-145) mmol/L Potassium (3.5-5.1) mmol/L Chloride (98-107) mmol/L Carbon Dioxide (21.0-32.0) mmol/L Anion Gap (3-11) mmol/L BUN (7-18) mg/dL Creatinine (0.70-1.30) mg/dL Est GFR (CKD-EPI 2020) (mL/min/1.73m2) Glucose (74-106) mg/dL Calcium (8.5-10.1) mg/dL Magnesium (1.8-2.4) mg/dL Total Bilirubin (0.2-1.0) mg/dL AST (15-37) U/L ALT (16-63) U/L Alkaline Phosphatase (46-116) U/L Troponin I (<or=60) ng/L Total Protein (6.4-8.2) g/dL Albumin (3.4-5.0) g/dL Procalcitonin ng/mL < 0.1 Urine Color (Yellow) Yellow Urine Clarity (Clear) Sl Cloudy Urine pH (5-8) 5.5 Ur Specific [place] (1.005-1.025) >= 1.030 H Urine Protein (Negative) mg/dL 100 H Urine Ketones (Negative) mg/dL Negative Urine Blood (Negative) Moderate H Urine Nitrite (Negative) Negative Urine Bilirubin (Negative) Negative Urine Urobilinogen (Up to 0.2) mg/dL 0.2 Ur Leukocyte Esterase (Negative) Negative Urine RBC (0-2) HPF 3-5 H Urine WBC (0-5) HPF 3-5 Ur Epithelial Cells (Negative) HPF Negative Urine Crystals (Negative) HPF Negative Urine Bacteria (Negative) HPF Rare Urine Casts (Negative) LPF 3-5 Fine Granular Urine Mucus (Negative) Negative Urine Other (Negative) Few Renal Ur Culture Indicated? No Urine Glucose (Negative) mg/dL Negative Salicylates (<2.8) mg/dL Urine Opiates Screen (Negative) Negative Urine Methadone Screen (Negative) Negative Acetaminophen (10-30) ug/mL Ur Barbiturates Screen (Negative) Negative Ur Tricyclics Screen (Negative) Negative Ur Amphetamines Screen (Negative) Negative U Benzodiazepines Scrn (Negative) Positive A Urine Cocaine Screen (Negative) Negative Ur THC Screen (Negative) Positive A Range/Units 11/29/22 11/30/22 22:30 00:26 WBC (4.4-10.8) 10^3/uL RBC (4.36-5.78) 10^6/uL Hgb (13.5-17.5) g/dL Hct (40.0-50.0) % MCV (80-95) fL MCH (27.0-33.0) pg MCHC (32.0-36.0) % RDW (11.8-14.1) % Plt Count (130-400) 10^3/uL MPV (8.0-11.0) fL Immature Gran % Neutrophils % Lymphocytes % Monocytes % Eosinophils % Basophils % Nucleated RBC % (0.0-0.3) % Absolute Neutrophils (1.2-6.7) 10^3/uL Absolute Lymphocytes (1.2-3.4) 10^3/uL Absolute Monocytes (0.1-0.8) 10^3/uL Absolute Eosinophils (0.0-0.7) 10^3/uL Absolute Basophils (0.0-0.2) 10^3/uL RBC Morphology ABG Sample Site Right Radial ABG pH (7.35-7.45) 7.24 L ABG pCO2 (35-45) mmHg 56 H ABG pO2 (80-105) mmHg 384 H ABG HCO3 (22-26) mmol/L 24 ABG Total CO2 (23-27) mmol/L ABG O2 Saturation (95-98) % ABG Base Excess (-2-3) mmol/L -3 L VBG Lactate Cancelled FiO2 % 80 Sodium (136-145) mmol/L Potassium (3.5-5.1) mmol/L Chloride (98-107) mmol/L Carbon Dioxide (21.0-32.0) mmol/L Anion Gap (3-11) mmol/L BUN (7-18) mg/dL Creatinine (0.70-1.30) mg/dL Est GFR (CKD-EPI 2020) (mL/min/1.73m2) Glucose (74-106) mg/dL Calcium (8.5-10.1) mg/dL Magnesium (1.8-2.4) mg/dL Total Bilirubin (0.2-1.0) mg/dL AST (15-37) U/L ALT (16-63) U/L Alkaline Phosphatase (46-116) U/L Troponin I (<or=60) ng/L Total Protein (6.4-8.2) g/dL Albumin (3.4-5.0) g/dL Procalcitonin ng/mL Urine Color (Yellow) Urine Clarity (Clear) Urine pH (5-8) Ur Specific [place] (1.005-1.025) Urine Protein (Negative) mg/dL Urine Ketones (Negative) mg/dL Urine Blood (Negative) Urine Nitrite (Negative) Urine Bilirubin (Negative) Urine Urobilinogen (Up to 0.2) mg/dL Ur Leukocyte Esterase (Negative) Urine RBC (0-2) HPF Urine WBC (0-5) HPF Ur Epithelial Cells (Negative) HPF Urine Crystals (Negative) HPF Urine Bacteria (Negative) HPF Urine Casts (Negative) LPF Urine Mucus (Negative) Urine Other (Negative) Ur Culture Indicated? Urine Glucose (Negative) mg/dL Salicylates (<2.8) mg/dL Urine Opiates Screen (Negative) Urine Methadone Screen (Negative) Acetaminophen (10-30) ug/mL Ur Barbiturates Screen (Negative) Ur Tricyclics Screen (Negative) Ur Amphetamines Screen (Negative) U Benzodiazepines Scrn (Negative) Urine Cocaine Screen (Negative) Ur THC Screen (Negative) ECG Data Attestation: I personally reviewed and interpreted this ECG (s) as follows: Interpretation: Rate of 108, sinus, normal axis, no acute ischemic findings. HPI General Mode of arrival: EMS. Date/Time Provider Initiated Documentation: 11/29/22 21:14. Limitations to Documentation: altered mental status. Information obtained by: EMS. HPI Narrative: Patient is a 22-year-old male with a history of epilepsy, asthma and pacemaker who presents per EMS after they were called to the scene for report of a seizure. They report that upon their arrival, seizure activity appeared to have ceased. They reported that bystanders noted several minutes of seizure activity and thought the patient had a weak pulse and provided a few minutes of CPR. EMS reported that patient had a pulse with oxygen saturation 80% on room air on arrival. They administered 10 mg of midazolam without any change in mental status. They also gave patient an additional 5 mg of his own midazolam without response. Patient continued to be unresponsive with what appeared to be gurgling respirations per EMS and they called the ED for med control. It was recommended that they proceed with intubation for airway protection as patient was noted to be hypoxic and unresponsive. There was no report of trauma. Related Data Home Medications Medication Instructions Recorded Confirmed fluticasone 250 mcg-salmeterol 50 1 inh inhalation BID 10/18/18 04/09/21 mcg/dose blistr powdr for inhalation (Advair Diskus) ipratropium 20 mcg-albuterol 100 1 puff inhalation Q6H PRN PRN 10/18/18 04/09/21 mcg/actuation mist for inhalation Shortness Of Breath (Combivent Respimat) lamotrigine 25 mg tablet (Lamictal) 75 mg PO BID 08/13/19 04/09/21 doxycycline hyclate 100 mg tablet 100 mg PO BID #20 tabs 08/14/19 ipratropium 0.5 mg-albuterol 3 mg 3 ml inhalation Q6H #90 mL 08/14/19 04/09/21 (2.5 mg base)/3 mL nebulization soln prednisone 50 mg tablet 50 mg PO DAILY #5 tabs 08/14/19 clonazepam 0.5 mg disintegrating 1 mg translingual BID 04/09/21 04/09/21 tablet midazolam 5 mg/spray (0.1 mL) 5 mg intranasal ONCE PRN 04/09/21 04/09/21 nasal spray (Nayzilam) montelukast 10 mg tablet 10 mg PO DAILY 04/09/21 04/09/21 (Singulair) Previous Rx's Medication Instructions Recorded doxycycline hyclate 100 mg tablet 100 mg PO BID #20 tabs 08/14/19 ipratropium 0.5 mg-albuterol 3 mg 3 ml inhalation Q6H #90 mL 08/14/19 (2.5 mg base)/3 mL nebulization soln prednisone 50 mg tablet 50 mg PO DAILY #5 tabs 08/14/19 Allergies Allergy/AdvReac Type Severity Reaction Status Date / Time No Known Allergies Allergy Unverified 04/09/21 23:36 General Stated Complaint: Seizure [place]: 2 Review of Systems Unobtainable due to mental status PFSH All Active Problems (Updated 11/29/22 @ 23:26 by Karol Peters DO) Acute respiratory failure (Acute) Status epilepticus (Acute) Pneumonia (Acute) History of asthma (Acute) History of pacemaker (Acute) Epilepsy (Acute) Breakthrough seizure (Acute) Asthma (Acute) Polysubstance abuse (Acute) Seizure disorder (Chronic) Medical History (Updated 11/29/22 @ 23:26 by Karol Peters DO) Asthma Epilepsy Surgical History History of nasal surgery History of tonsillectomy Social History Smoking/Tobacco Use Status: Never Smoking risk assessment performed?: Yes Alcohol Intake: current Drug use: Socially Substance use type: marijuana Do you feel safe at home: Yes Do you feel safe in your relationship?: Yes Exam Const General: patient mechanically ventilated and other (unresponsive, gurgling respirations) HENMT Head: normal to inspection and atraumatic Ears: external ears normal Face and sinus: normal facial exam Eyes General: appearance normal, both eyes and all related structures Pupils: PERRL Neck Neck: normal visual inspection and No submandibular swelling Chest Chest: normal inspection of the chest Resp Effort & Inspection: other (gurgling, bubbling of oral respirations noted w/ bagging with igel in place) Cardio Rate: tachycardic Rhythm: regular rhythm GI Inspection: normal to inspection, no abdominal wall ecchymosis and non-distended Palpation: soft, not firm and not rigid Auscultation: hypoactive bowel sounds Male General Exam: Yes normal external exam Back/Spine/Pelvis Thoracic/Lumbar Spine: thoracic and lumbar spine normal to inspection Skin General skin exam: no rashes or lesions noted Neuro General: patient obtunded Extrem General: normal to inspection and no edema Psych Appearance: grossly normal Course Vital Signs Vital signs: Vital Signs Pulse 128 H 11/29/22 21:27 Respiratory Rate 50 H 11/29/22 21:27 Blood Pressure 101/58 L 11/29/22 21:27 Pulse Oximetry 98 11/29/22 21:27 Pulse 128 H 11/29/22 21:27 Respiratory Rate 50 H 11/29/22 21:27 Blood Pressure 101/58 L 11/29/22 21:27 Blood Pressure Position Sitting 11/29/22 21:27 Pulse Oximetry 98 11/29/22 21:27 Oxygen Delivery Method Room Air 11/29/22 21:27 Oxygen Flow Rate 0 11/29/22 21:27 Procedures Intubation Time out performed: Yes sedative: Etomidate Mg Given: 20 paralytic: Succinylcholine Mg Given: 100 Laryngoscope: Mery ET Tube Size: 7.5 Tube Secured Depth (cm): 23 Tube Secured Location: lips Tube Placement Confirmation: visualized tube passing through cords Additional Comments: On first attempt, 7.5 ET tube was noted to be passing through the cords. Cuff was inflated. Unable to bag effectively secondary to stiffness and saturations decreased down and to as low as 50%. Cuff was deflated and ET tube removed and patient was bagged until oxygen saturations increased to near 80%. On second attempt, a 7.5 ET tube was again placed noted to be passing through the cords. Cuff was inflated and patient was able to bag much more easily but again saturations decreased to as low as 60%. The cuff was then deflated slightly and patient was able to continue to bag easily and oxygen saturations increased to 100%. Upon review of patient's chart after intubation, it is likely the desaturations and stiffness with bagging, with hypoxia on EMS arrival and wheezing noted on exam, due to hyperinflation secondary to his history of asthma with exacerbation. Critical Care Time Critical Care Time Critical Care Time: Yes Total Critical Care Time: 180 Attestation: I spent 180 minutes of critical care time with this patient. This does not include time spent on separately reported billable procedures.
--- NOTE | 2022-11-29 21:59 | NUR.NOTE ---
Nursing Note: patient arrives via EMS being bagged status post witness seizures. hx seizures. bystander CPR. artificial airway in place. Patient intubated by both MD Peters and Kerrie using 20 mg etomidate, 100 mg succ. patient was difficult to intubate, but was successful after two passes. Given 100mg propofol bolus by MD Potter for sedation Started on propofol drip at 50 mcg/kg/min. 14F OG placed. Chest xray confirmed placement of ET and OG tube. Propofol increased ti 75 mcg/kg/min after 5 minutes for adequate sedation. VSS throughout. BP running Q2min. 16F Moore placed. Patient to CT with transport medic RSI meds documented on RSI sheet.
[2022-11-29] MEDS: PROPOFOL 500 MG/50 ML BTL 36 MG IV (22:04)
[2022-11-29] MEDS: Ipratropium 0.5 MG/2.5 ML UPD VIAL ×2 (22:05→22:45)
[2022-11-29] MEDS: methylPREDNISolone SUCC 125 MG VIAL IVP (22:05)
[2022-11-29 22:09] LABS: Bilirubin Negative (Negative); Blood Moderate (Negative); Clarity Sl Cloudy (Clear); Glucose Negative (Negative); Ketones Negative (Negative); Leukocyte Esterase Negative (Negative); Nitrite Negative (Negative); Specific Gravity >= 1.030 (1.005-1.025); Urobilinogen 0.2 mg/dL (Up to 0.2); pH 5.5 (5-8)
[2022-11-29 22:10] LABS: ALT 28 U/L (16-63); AST 19 U/L (15-37); Albumin 3.9 g/dL (3.4-5.0); Alkaline Phosphatase 91 U/L (46-116); Anion Gap 12.5 mmol/L (3-11); BUN 12 mg/dL (7-18); Bilirubin, Total 0.3 mg/dL (0.2-1.0); CO2 23.5 mmol/L (21.0-32.0); CREATININE 1.5 mg/dL (0.70-1.30); Calcium 8.8 mg/dL (8.5-10.1); Chloride 102 mmol/L (98-107); Estimated GFR 66.67 (mL/min/1.73m2); Glucose 205 mg/dL (74-106); Magnesium 1.7 mg/dL (1.8-2.4); Sodium 138 mmol/L (136-145); Total Protein 7.2 g/dL (6.4-8.2); Troponin I < 50 ng/L (<or=60)
--- NOTE | 2022-11-29 22:10 | NUR.NOTE ---
Nursing Note: Nursing handout at beside to oncming GERARDO Yap.
[2022-11-29 22:13] LABS: Salicylate < 2.8 mg/dL (<2.8)
[2022-11-29] MEDS: Levalbuterol 1.25 MG/3 ML UPD VIAL UPD (22:13)
[2022-11-29 22:14] LABS: Acetaminophen 2 ug/mL (10-30)
[2022-11-29 22:21] LABS: *AMPHETAMINES SCREEN URINE Negative (Negative); *BARBITURATES SCREEN URINE Negative (Negative); *BENZODIAZEPINES SCREEN URINE Positive (Negative); Cannabinoids THC Positive (Negative); Cocaine Screen,Urine Negative (Negative); METHADONE URINE SCREEN Negative (Negative); OPIATES URINE SCREEN Negative (Negative)
[2022-11-29 22:27] LABS: Tricyclic Antidepressants Negative (Negative)
[2022-11-29 22:29] LABS: Absolute Lymphocyte Count 6.18 10^3/uL (1.2-3.4); Absolute Monocyte Count 1.17 10^3/uL (0.1-0.8); Absolute Neutrophil Count 8.36 10^3/uL (1.2-6.7)
[2022-11-29 22:30] LABS: Diff Comment Manual Differential; RBC Morphology Normal
[2022-11-29 22:30] LABS: Bacteria Rare HPF (Negative); C & S Indicated? No; Casts 3-5 Fine Granular LPF (Negative); Crystals Negative HPF (Negative); Epithelial Cells Negative HPF (Negative); Mucus Negative (Negative); Other Cells Few Renal (Negative)
[2022-11-29 22:34] LABS: BE -3 mmol/L (-2-3); HCO3 24 mmol/L (22-26); pCO2 56 mmHg (35-45); pH 7.24 (7.35-7.45); pO2 384 mmHg (80-105)
--- NOTE | 2022-11-29 22:34 | DI.VRAD_ITS ---
PROCEDURE INFORMATION: Exam: XR Chest Exam date and time: 11/29/2022 9:47 PM Age: 22 years old Clinical indication: Device placement; Other: Post intubation; Prior surgery; Surgery date: 6+ months; Surgery type: Pacemaker; Patient HX: Intubation tube placement; Additional info: Ng tube was repositioned between images TECHNIQUE: Imaging protocol: Radiologic exam of the chest. Views: 1 view. COMPARISON: CR XR PORTABLE CHEST AP 08/13/2019 11:06 PM FINDINGS: Tubes, catheters and devices: Endotracheal tube tip is 3.5 cm above the grecia. A nasogastric tube was placed for the 2nd image with its tip projecting in the gastric fundus distribution. Lungs: Normal pulmonary expansion. Pulmonary vasculature grossly normal. Consolidative airspace disease in the medial left upper lobe concerning for pneumonia or atelectasis. Mild bandlike chronic atelectasis or scarring in the central right upper lobe is unchanged from 2020. Pleural spaces: No pleural effusion. No pneumothorax. Heart/Mediastinum: Heart size normal. No tracheal/mediastinal shift. Vasculature: Cardiac pacemaker via left subclavian approach without gross hardware complication. Bones/joints: No acute osseous abnormalities are identified. IMPRESSION: 1. Endotracheal tube tip is 3.5 cm above the grecia. 2. Nasogastric tube tip projects in the gastric fundus. 3. Cardiac pacemaker without gross hardware complication. No pneumothorax. 4. Left upper lobe airspace disease concerning for pneumonia. 5. Chronic scarring or atelectasis in the right upper lobe is unchanged from 2020. Dictated and Authenticated by: Farzad Bocanegra MD. Ordering:SAMANTHA Roberson MD
[2022-11-29 22:37] LABS: FIO2 80 %; Site Right Radial
[2022-11-29] MEDS: Levalbuterol 1.25 MG/3 ML UPD VIAL (22:45)
--- NOTE | 2022-11-29 22:45 | RT.EKG_ITS ---
APPROVED REPORT Exam: Resting ECG Reason for Exam: seizure activity, Patient Location: E HR:108 bpm ECG Measurements Heart Rate 108 AXIS GA 137 P 63 QRSd 92 QRS 84 QT 345 T 50 QTc 463 Conclusion Sinus tachycardia...rate> 99. Sinus. Normal axis. No STEMI. I have reviewed and interpreted ECG and agree with software generated interpretation.
[2022-11-29] MEDS: MIDAZOLAM 50 MG in Normal Saline 90 ML IV (22:58)
[2022-11-29] MEDS: fentaNYL 1,000 MCG in Normal Saline 80 ML 2.5 MCG IV (23:00)
[2022-11-29] MEDS: LORazepam 2 MG/ML VIAL IVP ×2 (23:01→23:53)
[2022-11-29] MEDS: LORazepam 2 MG/ML VIAL (23:02)
[2022-11-29] MEDS: Normal Saline 1,000 ML 1000 ML IV (23:03)
[2022-11-29] MEDS: levETIRAcetam 2,000 MG in Normal Saline 100 ML 400 MG IVPB ×2 (23:48→23:53)
--- NOTE | 2022-11-30 | NUR.NOTE ---
Addendum entered by Joe Callahan RN 11/30/22 01:53: Pt seizing, verbal orders for 4mg Ativan IV. Pt having numerous seizures throughout time in ER. Dr. Peters at bedside during seizures, received verbal orders. Original Note: Nursing Note:
[2022-11-30] MEDS: AZITHROMYCIN 500 MG in Normal Saline 250 ML 250 MG IVPB (00:02)
[2022-11-30] MEDS: cefTRIAXone 2 GM/50 ML BAG IVPB (00:03)
[2022-11-30 00:24] LABS: Procalcitonin < 0.1 ng/mL
--- NOTE | 2022-11-30 01:02 | NUR.NOTE ---
Nursing Note: Pt out of ER via air transport to [facility], report given to Raheem, CCRN. Pt had continuous seizures, pt imaging not completed.
--- NOTE | 2022-11-30 01:18 | NUR.NOTE ---
Nursing Note:Report given to GERARDO Guzman at [facility]. All questions answered.
--- NOTE | 2022-11-30 01:43 | NUR.NOTE ---
Nursing Note: When pt was transferred to air EMS, pt Versed and Fentanyl drips discontinued. Remaining medication wasted with Nursing Plug Maker (GERARDO Koroma).
[2022-11-30] MEDS: LORazepam 2 MG/ML VIAL (01:48)
[2022-11-30 02:06] VITALS: BP 97/43; PULSE 106; RESP 16; RESP 20; O2SAT 100
== END 2022-11-30 01:15 | disposition short-term general hospital (02) ==
PROVIDERS: Emergency Provider Physician Assistant
DX: J96.01 Acute respiratory failure with hypoxia (principal); G40.911 Epilepsy, unspecified, intractable, with status epilepticus; J18.9 Pneumonia, unspecified organism; J45.909 Unspecified asthma, uncomplicated; Z95.0 Presence of cardiac pacemaker
CPT/HCPCS: 31500; 80053; 80307; 82805; 84145; 87040; 93005; 96365; 96367; 96368; 96375; 96376; 99291; 99292; 36600; 71045; 80329; 81003; 81015; 83605; 83735; 84484; 85025; 93010; 94640; J0456; J1953; J2060; J2704; J2930; J3010; J3490; J7614; J7644